=== PATIENT | female | born 1970 | race American Indian/Alaskan Native ===

== ENCOUNTER 2017-11-05 16:47 | Emergency (ER) | payer SELFPAY ==
[2017-11-05 16:54] VITALS: BP 122/84
[2017-11-05 17:24] LABS: Basophils % (Auto) 0.4 % (0.0-1.8); Eosinophils % (Auto) 0.5 % (0.0-4.3); Hematocrit 43.7 % (30.3-42.9); Hemoglobin 14.9 gm/dl (10.1-14.3); Lymphocytes # (Auto) 2.4 K/mm3 (1.2-5.4); Lymphocytes % (Auto) 23.3 % (13.4-35.0); Mean Corpuscular HGB Conc 34 % (30-34); Mean Corpuscular Hemoglobin 35 pg (28-32); Mean Corpuscular Volume 102 fl (79-97); Monocytes # (Auto) 0.7 K/mm3 (0.0-0.8); Monocytes % (Auto) 6.7 % (0.0-7.3); Platelet Count 359 K/mm3 (140-440); Red Blood Count 4.31 M/mm3 (3.65-5.03); Red Cell Distribution Width 14.9 % (13.2-15.2)
[2017-11-05 17:36] LABS: Alanine Aminotransferase 31 units/L (7-56); Albumin 4.3 g/dL (3.9-5); BUN/Creatinine Ratio 6; Blood Urea Nitrogen 4 mg/dL (7-17); Calcium 9.8 mg/dL (8.4-10.2); Hemolysis Index 8; Lipase 11 units/L (13-60)
[2017-11-05 18:39] LABS: Bilirubin,Urine SM (Negative); Blood,Urine SM (Negative); Color,Urine Amber (Yellow); Mucus,Urine 3+ /HPF
[2017-11-05 22:09] LABS: Ictotest,Urine Positive (Negative)
== END 2017-11-06 01:35 | disposition left against medical advice (07) ==
LOC: ED 16:47
DX: R10.9 Unspecified abdominal pain (principal); Z53.21 Procedure and treatment not carried out due to patient leaving prior to being seen by health care provider
CPT/HCPCS: 36415; 80053; 81001; 83690; 85025

== ENCOUNTER 2017-11-06 04:27 | Inpatient (IN) | payer SELFPAY ==
--- NOTE | 2017-11-06 10:34 | Emergency Department Report ---
ED Abdominal Pain HPI - General Chief Complaint: Abdominal Pain Stated Complaint: ABD PAIN; N/V Time Seen by Provider: 11/06/17 10:20 Source: patient Mode of arrival: Ambulatory Limitations: No Limitations - History of Present Illness Initial Comments: She is 46-year-old presents to the emergency room with complaints of generalized abdominal abdominal pain. Patient states she was seen in the emergency room on the of this month and an pain is worsening. Patient states the pain is 10 out of 10. Patient states that she had her labs done and urine done and was discharged home. Patient states she does not know her diagnosis previous ER visit. Patient denies fever and chills. Patient denies chest pain shortness of breath. Patient denies nausea and vomiting. MD Complaint: abdominal pain -: Sudden, days(s) (for 1 day) Location: diffuse Radiation: none Migration to: no migration Severity: severe Severity scale (0 -10): 10 Quality: stabbing Consistency: constant, other (worsening) Improves With: rest Worsens With: movement Associated Symptoms: nausea, vomiting - Related Data LMP (females 10-50): unknown Allergies Allergy/AdvReac Type Severity Reaction Status Date / Time No Known Allergies Allergy Unverified 11/05/17 16:54 ED Review of Systems ROS: Stated complaint: ABD PAIN; N/V Other details as noted in HPI Comment: All other systems reviewed and negative Constitutional: denies: chills, fever Eyes: denies: eye pain, eye discharge, vision change ENT: denies: ear pain, throat pain Respiratory: denies: cough, shortness of breath, wheezing Cardiovascular: denies: chest pain, palpitations Endocrine: no symptoms reported Gastrointestinal: abdominal pain, nausea, vomiting. denies: diarrhea Genitourinary: denies: urgency, dysuria, discharge Musculoskeletal: denies: back pain, joint swelling, arthralgia Skin: denies: rash, lesions Neurological: denies: headache, weakness, paresthesias Psychiatric: denies: anxiety, depression Hematological/Lymphatic: denies: easy bleeding, easy bruising ED Past Medical Hx - Past Medical History Previous Medical History?: Yes Hx Hypertension: Yes Hx CVA: Yes Hx Diabetes: Yes Hx Psychiatric Treatment: Yes (Bipolar, PTSD, Depression) Hx HIV: Yes Additional medical history: gastropharesis, Neuropathy, PUD - Surgical History Past Surgical History?: Yes Hx Cholecystectomy: Yes - Family History Family history: hypertension - Social History Smoking Status: Current Every Day Smoker Substance Use Type: Marijuana ED Physical Exam - General Limitations: No Limitations General appearance: alert, in no apparent distress - Head Head exam: Present: atraumatic, normocephalic - Eye Eye exam: Present: normal appearance - ENT ENT exam: Present: mucous membranes moist - Neck Neck exam: Present: normal inspection - Respiratory Respiratory exam: Present: normal lung sounds bilaterally. Absent: respiratory distress - Cardiovascular Cardiovascular Exam: Present: regular rate, normal rhythm. Absent: systolic murmur, diastolic murmur, rubs, gallop - GI/Abdominal GI/Abdominal exam: Present: soft, tenderness (generalized tenderness to palpation), normal bowel sounds - Extremities Exam Extremities exam: Present: normal inspection - Back Exam Back exam: Present: normal inspection - Neurological Exam Neurological exam: Present: alert, oriented X3 - Psychiatric Psychiatric exam: Present: normal affect, normal mood - Skin Skin exam: Present: warm, dry, intact, normal color. Absent: rash ED Course Vital Signs 11/06/17 11/06/17 11/06/17 05:53 09:27 09:30 Temperature 98.1 F Pulse Rate 85 93 H 80 Respiratory 18 17 15 Rate Blood Pressure 140/88 129/88 O2 Sat by Pulse 100 Oximetry 11/06/17 11/06/17 11/06/17 10:00 10:30 11:00 Temperature Pulse Rate 78 96 H 80 Respiratory 14 12 14 Rate Blood Pressure 137/87 137/104 145/88 O2 Sat by Pulse 94 Oximetry 11/06/17 11/06/17 11/06/17 11:30 12:00 12:30 Temperature Pulse Rate 90 82 84 Respiratory 16 14 16 Rate Blood Pressure 153/101 131/78 134/86 O2 Sat by Pulse 92 Oximetry 11/06/17 11/06/17 11/06/17 13:00 13:30 14:00 Temperature Pulse Rate 81 104 H 91 H Respiratory 14 21 20 Rate Blood Pressure 133/86 139/92 143/92 O2 Sat by Pulse 95 Oximetry 11/06/17 11/06/17 14:30 14:51 Temperature Pulse Rate Respiratory 18 Rate Blood Pressure 127/76 O2 Sat by Pulse Oximetry - Reevaluation(s) Reevaluation #1: All labs reviewed from prior visit. Will repeat order labs and do a CT scan 11/06/17 10:30 Reevaluation #2: All results discussed with patient. Due to the fact the patient has been to the hospital twice in last 24 hours and the pain is intractable, we will admit patient to the hospitalist further evaluation and treatment. Hospitalist agreed to admit. 11/06/17 1730 ED Medical Decision Making - Lab Data Result diagrams: 11/06/17 10:39 Critical care attestation.: If time is entered above; I have spent that time in minutes in the direct care of this critically ill patient, excluding procedure time. ED Disposition Clinical Impression: Abdominal pain, Nausea & vomiting, Intractable abdominal pain Disposition: OP ADMIT IP TO THIS HOSP Is pt being admited?: Yes Does the pt Need Aspirin: No Condition: Serious Time of Disposition: 18:12
[2017-11-06 10:58] LABS: Basophils # (Auto) 0.1 K/mm3 (0.0-0.1); Basophils % (Auto) 0.5 % (0.0-1.8); Eosinophils # (Auto) 0.2 K/mm3 (0.0-0.4); Eosinophils % (Auto) 1.6 % (0.0-4.3); Hematocrit 42.8 % (30.3-42.9); Hemoglobin 14.4 gm/dl (10.1-14.3); Lymphocytes # (Auto) 3.6 K/mm3 (1.2-5.4); Lymphocytes % (Auto) 30.2 % (13.4-35.0); Mean Corpuscular HGB Conc 34 % (30-34); Mean Corpuscular Hemoglobin 34 pg (28-32); Mean Corpuscular Volume 101 fl (79-97); Monocytes % (Auto) 8.2 % (0.0-7.3); Platelet Count 373 K/mm3 (140-440); Red Blood Count 4.24 M/mm3 (3.65-5.03); Red Cell Distribution Width 15.1 % (13.2-15.2)
[2017-11-06] MEDS ORDERED: DILAUDID ONE ×2 (13:59→18:35)
[2017-11-06] MEDS ORDERED: ZOFRAN ONE (14:00)
[2017-11-06] MEDS ORDERED: DILAUDID IV ONE ×2 (14:47→18:20)
[2017-11-06] MEDS ORDERED: ZOFRAN IV ONE (14:48)
--- NOTE | 2017-11-06 15:43 | Cat Scan Report ---
CT ABDOMEN PELVIS WITHOUT CONTRAST: HISTORY: abdominal pain. COMPARISON: none. TECHNIQUE: Helical CT in 1.25mm intervals without IV contrast. Sagittal and coronal reconstructions. FINDINGS: Lung bases: Normal. Liver: Normal. Biliary system: The gallbladder has been surgically removed. No biliary dilatation. Pancreas: Normal. Spleen: Normal. Kidneys/ureters/bladder: Normal. Adrenal glands: Normal. Aorta: Normal. Intestines: Normal. Appendix: Normal. Pelvic viscera: Mild uterine fibroid disease is suspected. No adnexal cyst or mass. Ascites: None. Adenopathy: None. Musculoskeletal: Normal. IMPRESSION: No acute inflammatory process. Mild uterine fibroid disease.
[2017-11-06 16:12] LABS: Bacteria,Urine 1+ /HPF (Negative); Bilirubin,Urine NEG (Negative); Blood,Urine SM (Negative); Color,Urine Yellow (Yellow); Hyaline Casts,Urine 1 /LPF; Mucus,Urine 3+ /HPF
--- NOTE | 2017-11-06 21:49 | History and Physical Report ---
History of Present Illness Date of examination: 11/06/17 Date of admission: Fran 11/06/2017 Chief complaint: Chief complaint: Severe abdominal pain for 3 days History of present illness: History of Present Illness: She is 46-year-old presents to the emergency room with complaints of generalized abdominal pain. Patient states she was seen in the emergency room on the 05 of November and pain is worsening. Patient states the pain is 10 out of 10. Patient states that she had her labs done and urine done and was discharged home. Patient states she does not know her diagnosis previous ER visit. Patient denies fever and chills. Patient denies chest pain shortness of breath. Patient denies nausea and vomiting. No excessive bending or relieving factors Past Medical History Previous Medical History?: Yes Hx Hypertension: Yes Hx CVA: Yes Hx Diabetes: Yes Hx Psychiatric Treatment: Yes (Bipolar, PTSD, Depression) Hx HIV: Yes Additional medical history: gastropharesis, Neuropathy, PUD -Surgical History Past Surgical History?: Yes Hx Cholecystectomy: Yes -Family History Family history: hypertension Social History Smoking Status: Current Every Day Smoker Substance Use Type: Marijuana Review of Systems ROS: Stated complaint: ABD PAIN; N/V Other details as noted in HPI Comment: All other systems reviewed and negative Constitutional: denies: chills, fever Eyes: denies: eye pain, eye discharge, vision change ENT: denies: ear pain, throat pain Respiratory: denies: cough, shortness of breath, wheezing Cardiovascular: denies: chest pain, palpitations Endocrine: no symptoms reported Gastrointestinal: abdominal pain, nausea, vomiting. denies: diarrhea Genitourinary: denies: urgency, dysuria, discharge Musculoskeletal: denies: back pain, joint swelling, arthralgia Skin: denies: rash, lesions Neurological: denies: headache, weakness, paresthesias Psychiatric: denies: anxiety, depression Hematological/Lymphatic: denies: easy bleeding, easy bruising Medications and Allergies Allergies Allergy/AdvReac Type Severity Reaction Status Date / Time No Known Allergies Allergy Verified 11/06/17 22:12 Home Medications Medication Instructions Recorded Confirmed Last Taken Type Aspirin [Adult Low Dose Aspirin EC] 81 mg PO DAILY 11/06/17 11/06/17 11/05/17 History Docusate Sodium [Stool Softener] 100 mg PO DAILY 11/06/17 11/06/17 11/05/17 History Efavirenz/Emtricitab/Tenofovir 1 each PO DAILY 11/06/17 11/06/17 11/05/17 History [Atripla Tablet] Esomeprazole Magnesium [NexIUM] 40 mg PO QAM 11/06/17 11/06/17 11/05/17 History Gabapentin [Neurontin] 800 mg PO BID 11/06/17 11/06/17 11/05/17 History Hydrochlorothiazide [HCTZ] 25 mg PO DAILY 11/06/17 11/06/17 11/05/17 History Metformin HCl [Glucophage Xr] 500 mg PO BID 11/06/17 11/06/17 11/05/17 History Metoclopramide [Reglan] 10 mg PO QID 11/06/17 11/06/17 11/05/17 History Potassium 99 mg PO DAILY 11/06/17 11/06/17 11/05/17 History Promethazine [Phenergan TAB] 25 mg PO DAILY 11/06/17 11/06/17 11/05/17 History Quetiapine Fumarate [Seroquel] 600 mg PO DAILY 11/06/17 11/06/17 11/05/17 History Valsartan [Diovan] 160 mg PO DAILY 11/06/17 11/06/17 11/05/17 History Exam - Constitutional Vitals: Temp Pulse Resp BP Pulse Ox 98.3 F 78 16 95/57 98 11/06/17 19:50 11/06/17 19:50 11/06/17 19:50 11/06/17 21:30 11/06/17 19:50 General appearance: Present: no acute distress, well-nourished - EENT Eyes: Present: PERRL ENT: hearing intact, clear oral mucosa - Neck Neck: Present: supple, normal ROM - Respiratory Respiratory effort: normal Respiratory: bilateral: CTA - Cardiovascular Heart Sounds: Present: S1 & S2. Absent: rub, click - Extremities Extremities: no ischemia, pulses intact, pulses symmetrical, No edema Peripheral Pulses: within normal limits - Abdominal General gastrointestinal: Present: soft, tender, non-distended, normal bowel sounds Localized gastrointestinal: tender: diffuse Female genitourinary: Present: normal - Rectal Rectal Exam: deferred - Integumentary Integumentary: Present: clear, warm, dry - Musculoskeletal Musculoskeletal: gait normal, strength equal bilaterally - Psychiatric Psychiatric: appropriate mood/affect, intact judgment & insight - Neurologic Neurologic: CNII-XII intact, moves all extremities - Allied Health Allied health notes reviewed: nursing, case management Results - Labs CBC & Chem 7: 11/07/17 05:01 11/07/17 05:01 Labs: Laboratory Last Values WBC 12.1 K/mm3 (4.5-11.0) H 11/06/17 10:39 RBC 4.24 M/mm3 (3.65-5.03) 11/06/17 10:39 Hgb 14.4 gm/dl (10.1-14.3) H 11/06/17 10:39 Hct 42.8 % (30.3-42.9) 11/06/17 10:39 MCV 101 fl (79-97) H 11/06/17 10:39 MCH 34 pg (28-32) H 11/06/17 10:39 MCHC 34 % (30-34) 11/06/17 10:39 RDW 15.1 % (13.2-15.2) 11/06/17 10:39 Plt Count 373 K/mm3 (140-440) 11/06/17 10:39 Lymph % (Auto) 30.2 % (13.4-35.0) 11/06/17 10:39 [place] % (Auto) 8.2 % (0.0-7.3) H 11/06/17 10:39 Eos % (Auto) 1.6 % (0.0-4.3) 11/06/17 10:39 Baso % (Auto) 0.5 % (0.0-1.8) 11/06/17 10:39 Lymph # 3.6 K/mm3 (1.2-5.4) 11/06/17 10:39 [place] # 1.0 K/mm3 (0.0-0.8) H 11/06/17 10:39 Eos # 0.2 K/mm3 (0.0-0.4) 11/06/17 10:39 Baso # 0.1 K/mm3 (0.0-0.1) 11/06/17 10:39 Seg Neutrophils % 59.5 % (40.0-70.0) 11/06/17 10:39 Seg Neutrophils # 7.2 K/mm3 (1.8-7.7) 11/06/17 10:39 Amylase 33 units/L (27-131) 11/06/17 10:39 Lipase 15 units/L (13-60) 11/06/17 10:39 HCG, Qual Negative (Negative) 11/06/17 10:39 Urine Color Yellow (Yellow) 11/06/17 15:49 Urine Turbidity Clear (Clear) 11/06/17 15:49 Urine pH 6.0 (5.0-7.0) 11/06/17 15:49 Ur Specific [place] 1.021 (1.003-1.030) 11/06/17 15:49 Urine Protein 100 mg/dl mg/dL (Negative) 11/06/17 15:49 Urine Glucose (UA) Neg mg/dL (Negative) 11/06/17 15:49 Urine Ketones 80 mg/dL (Negative) 11/06/17 15:49 Urine Blood Sm (Negative) 11/06/17 15:49 Urine Nitrite Neg (Negative) 11/06/17 15:49 Urine Bilirubin Neg (Negative) 11/06/17 15:49 Urine Urobilinogen 2.0 mg/dL (<2.0) 11/06/17 15:49 Ur Leukocyte Esterase Neg (Negative) 11/06/17 15:49 Urine WBC (Auto) 2.0 /HPF (0.0-6.0) 11/06/17 15:49 Urine RBC (Auto) 8.0 /HPF (0.0-6.0) 11/06/17 15:49 U Epithel Cells (Auto) 30.0 /HPF (0-13.0) H 11/06/17 15:49 Urine Bacteria (Auto) 1+ /HPF (Negative) 11/06/17 15:49 Hyaline Casts 1 /LPF 11/06/17 15:49 Urine Mucus 3+ /HPF 11/06/17 15:49 Short CBC 11/06/17 11/07/17 Range/Units 10:39 05:01 WBC 12.1 H 9.6 (4.5-11.0) K/mm3 Hgb 14.4 H 12.9 (10.1-14.3) gm/dl Hct 42.8 37.8 (30.3-42.9) % Plt Count 373 301 (140-440) K/mm3 [facility] 11/07/17 05:01 Sodium 137 Potassium 2.8 L* Chloride 99.2 Carbon Dioxide 22 BUN 7 Creatinine 0.7 Glucose 137 H Calcium 8.5 Liver Function 11/07/17 Range/Units 05:01 Total Bilirubin 0.30 (0.1-1.2) mg/dL AST 33 (5-40) units/L ALT 30 (7-56) units/L Alkaline Phosphatase 114 (35-129) units/L Albumin 3.6 L (3.9-5) g/dL Urine 11/06/17 Range/Units 15:49 Urine Color Yellow (Yellow) Urine pH 6.0 (5.0-7.0) Ur Specific [place] 1.021 (1.003-1.030) Urine Protein 100 mg/dl (Negative) mg/dL Urine Glucose (UA) Neg (Negative) mg/dL Short CBC 11/06/17 11/07/17 Range/Units 10:39 05:01 WBC 12.1 H 9.6 (4.5-11.0) K/mm3 Hgb 14.4 H 12.9 (10.1-14.3) gm/dl Hct 42.8 37.8 (30.3-42.9) % Plt Count 373 301 (140-440) K/mm3 [facility] 11/07/17 05:01 Sodium 137 Potassium 2.8 L* Chloride 99.2 Carbon Dioxide 22 BUN 7 Creatinine 0.7 Glucose 137 H Calcium 8.5 Liver Function 11/07/17 Range/Units 05:01 Total Bilirubin 0.30 (0.1-1.2) mg/dL AST 33 (5-40) units/L ALT 30 (7-56) units/L Alkaline Phosphatase 114 (35-129) units/L Albumin 3.6 L (3.9-5) g/dL Urine 11/06/17 Range/Units 15:49 Urine Color Yellow (Yellow) Urine pH 6.0 (5.0-7.0) Ur Specific [place] 1.021 (1.003-1.030) Urine Protein 100 mg/dl (Negative) mg/dL Urine Glucose (UA) Neg (Negative) mg/dL - Imaging and Cardiology EKG: report reviewed CT scan - abdomen: report reviewed Imaging and Cardiology: CT abdomen No acute inflammatory process Mild uterine fibroid disease Assessment and Plan Advance Directives: Yes (full code) VTE prophylaxis?: Chemical Plan of care discussed with patient/family: Yes - Patient Problems (1) Intractable abdominal pain Current Visit: Yes Status: Acute Plan to address problem: Normal CAT scan Patient admitted for observation Surgical consult requested Possible gastroparesis causing generalized pain will defer to surgery If cleared we will discharge the patient (2) Hypokalemia Current Visit: Yes Status: Acute Plan to address problem: Supplemented (3) Hypertension Current Visit: Yes Status: Chronic Qualifiers: Hypertension type: essential hypertension Qualified Code(s): I10 - Essential (primary) hypertension Plan to address problem: Continue antihypertensives (4) T2DM (type 2 diabetes mellitus) Current Visit: Yes Status: Chronic Qualifiers: Diabetes mellitus rn long term care insulin use: without rn long term care use Plan to address problem: We'll stop the metformin which can cause abdominal pain nausea and vomiting. Coverage for now Check hemoglobin A1c (5) HIV (human immunodeficiency virus infection) Current Visit: Yes Status: Chronic Plan to address problem: Continue antiretrovirals (6) DVT prophylaxis Current Visit: Yes Status: Acute Plan to address problem: Heparin subcutaneous
[2017-11-06] MEDS ORDERED: TYLENOL PO PRN (22:00)
[2017-11-06] MEDS ORDERED: SODIUM CHLORIDE FLUSH SYRINGE 10 ML IV PRN (22:00)
[2017-11-06] MEDS ORDERED: ZOFRAN IV PRN (22:00)
[2017-11-06] MEDS: SODIUM CHLORIDE FLUSH SYRINGE 10 ML IV SCH (22:57)
[2017-11-07] MEDS: D5NS 1,000 ML IV SCH ×2 (00:41→23:06)
[2017-11-07] MEDS: MORPHINE IV PRN ×2 (00:41→05:55)
[2017-11-07 05:26] LABS: Basophils # (Auto) 0.1 K/mm3 (0.0-0.1); Basophils % (Auto) 0.5 % (0.0-1.8); Eosinophils # (Auto) 0.3 K/mm3 (0.0-0.4); Eosinophils % (Auto) 2.9 % (0.0-4.3); Hematocrit 37.8 % (30.3-42.9); Hemoglobin 12.9 gm/dl (10.1-14.3); Lymphocytes # (Auto) 3.8 K/mm3 (1.2-5.4); Lymphocytes % (Auto) 39.6 % (13.4-35.0); Mean Corpuscular HGB Conc 34 % (30-34); Mean Corpuscular Hemoglobin 34 pg (28-32); Mean Corpuscular Volume 100 fl (79-97); Monocytes # (Auto) 0.8 K/mm3 (0.0-0.8); Monocytes % (Auto) 8.1 % (0.0-7.3); Platelet Count 301 K/mm3 (140-440); Red Blood Count 3.78 M/mm3 (3.65-5.03); Red Cell Distribution Width 14.8 % (13.2-15.2)
[2017-11-07] MEDS: HEPARIN SUB-Q SCH ×3 (05:43→21:42)
[2017-11-07 05:47] LABS: Alanine Aminotransferase 30 units/L (7-56); Albumin 3.6 g/dL (3.9-5); BUN/Creatinine Ratio 10; Blood Urea Nitrogen 7 mg/dL (7-17); Calcium 8.5 mg/dL (8.4-10.2); Hemolysis Index 9
[2017-11-07] MEDS ORDERED: KCL 10MEQ/100ML 10 MEQ/100 ML BAG IV SCH ×2 (08:00→10:00)
[2017-11-07] MEDS ORDERED: KCL 40 MEQ in NACL 0.9% 500 ML 400 ML IV ONE (09:30)
[2017-11-07] MEDS ORDERED: K-DUR PO ONE (09:48)
[2017-11-07] MEDS ORDERED: DIOVAN PO SCH (10:00)
[2017-11-07] MEDS ORDERED: ATRIPLA (NF) PO SCH (10:00)
[2017-11-07] MEDS ORDERED: QUETIAPINE FUMARATE 600 MG PO SCH (10:00)
--- NOTE | 2017-11-07 10:46 | Consultation ---
History of Present Illness Consult date: 11/07/17 Chief complaint: Abdominal pain - History of present illness History of present illness: 46-year-old female with a past medical history of diabetes, gastroparesis, HIV, neuropathy presents to the emergency room with complaints of left upper quadrant abdominal pain for 24 hours. It is sharp in nature and radiates from the left upper quadrant to the rest of her abdomen. She also had multiple bouts of nonbloody, nonbilious emesis over the last 24 hours. She states that this pain is chronic but becomes exacerbated by her gastroparesis several times a year. She states that when she feels her gastroparesis being exacerbated, she takes Reglan for 1-2 days and this seems to help. This a.m., she did tolerate clear liquids. She also complains of being constipated. Denies fevers , chills, chest pain, shortness of breath. She states she is compliant with her medications. She follows with a potato sorter at [place]. Her last EGD was last year which showed peptic ulcer disease for which she takes Nexium. Past History Past Medical History: diabetes, other (neuropathy, gastroparesis, HIV) Past Surgical History: Other (EGD, laparoscopic cholecystectomy) Social history: other (crack, marijuana) Family history: no significant family history Medications and Allergies Allergies Allergy/AdvReac Type Severity Reaction Status Date / Time No Known Allergies Allergy Verified 11/06/17 22:12 Home Medications Medication Instructions Recorded Confirmed Last Taken Type Aspirin [Adult Low Dose Aspirin EC] 81 mg PO DAILY 11/06/17 11/06/17 11/05/17 History Docusate Sodium [Stool Softener] 100 mg PO DAILY 11/06/17 11/06/17 11/05/17 History Efavirenz/Emtricitab/Tenofovir 1 each PO DAILY 11/06/17 11/06/17 11/05/17 History [Atripla Tablet] Esomeprazole Magnesium [NexIUM] 40 mg PO QAM 11/06/17 11/06/17 11/05/17 History Gabapentin [Neurontin] 800 mg PO BID 11/06/17 11/06/17 11/05/17 History Hydrochlorothiazide [HCTZ] 25 mg PO DAILY 11/06/17 11/06/17 11/05/17 History Metformin HCl [Glucophage Xr] 500 mg PO BID 11/06/17 11/06/17 11/05/17 History Metoclopramide [Reglan] 10 mg PO QID 11/06/17 11/06/17 11/05/17 History Potassium 99 mg PO DAILY 11/06/17 11/06/17 11/05/17 History Promethazine [Phenergan TAB] 25 mg PO DAILY 11/06/17 11/06/17 11/05/17 History Quetiapine Fumarate [Seroquel] 600 mg PO DAILY 11/06/17 11/06/17 11/05/17 History Valsartan [Diovan] 160 mg PO DAILY 11/06/17 11/06/17 11/05/17 History Active Meds: Active Medications Acetaminophen (Tylenol) 650 mg PO Q4H PRN PRN Reason: Pain MILD(1-3)/Fever >100.5/HANKS Heparin Sodium (Porcine) (Heparin) 5,000 unit SUB-Q Q8HR [facility] Last Admin: 11/07/17 05:43 Dose: 5,000 unit Dextrose/Sodium Chloride (D5ns) 1,000 mls @ 125 mls/hr IV DIRECT JESUSITA Last Admin: 11/07/17 00:41 Dose: 125 mls/hr Potassium Chloride 40 meq/ (Sodium Chloride) 420 mls @ 100 mls/hr IV ONCE ONE Stop: 11/07/17 13:41 Potassium Chloride (Kcl 10meq/100ml) 10 meq in 100 mls @ 100 mls/hr IV Q1H JESUSITA Stop: 11/07/17 12:59 Insulin Human Regular (Humulin R) 0 units SUB-Q Q6HR JESUSITA; Protocol Metoclopramide HCl (Reglan) 5 mg IV ACHS JESUSITA Morphine Sulfate (Morphine) 4 mg IV Q4H PRN PRN Reason: Pain , Severe (7-10) Last Admin: 11/07/17 05:55 Dose: 4 mg Ondansetron HCl (Zofran) 4 mg IV Q8H PRN PRN Reason: Nausea And Vomiting Oxycodone/Acetaminophen (Percocet 5/325) 1 tab PO Q6H PRN PRN Reason: Pain, Moderate (4-6) Quetiapine Fumarate (Seroquel) 600 mg PO DAILY [facility] Last Admin: 11/07/17 09:46 Dose: 600 mg Sodium Chloride (Sodium Chloride Flush Syringe 10 Ml) 10 ml IV BID JESUSITA Last Admin: 11/06/17 22:57 Dose: 10 ml Sodium Chloride (Sodium Chloride Flush Syringe 10 Ml) 10 ml IV PRN PRN PRN Reason: LINE FLUSH Review of Systems All systems: negative (10 point review systems was performed and negative except for that listed in HPI) Exam Vital Signs Temp Pulse Resp BP Pulse Ox 98.1 F 85 18 140/88 100 11/06/17 05:53 11/06/17 05:53 11/06/17 05:53 11/06/17 05:53 11/06/17 05:53 Narrative exam: General: Awake, alert, oriented 3. No apparent distress ENT: No scleral icterus or conjunctival pallor CV: S1, S2 present. No murmurs, rubs, gallops Respiratory: The auscultation bilaterally, no wheezes, rales, rhonchi Abdomen: Soft, nondistended, left upper quadrant tenderness to palpation. No rebound, rigidity, guarding Extremities: No clubbing, cyanosis, edema Results - Labs 11/07/17 05:01 11/07/17 05:01 Abnormal lab results 11/06/17 11/06/17 11/06/17 Range/Units 10:39 15:49 22:53 WBC 12.1 H (4.5-11.0) K/mm3 Hgb 14.4 H (10.1-14.3) gm/dl MCV 101 H (79-97) fl MCH 34 H (28-32) pg Lymph % (Auto) (13.4-35.0) % [place] % (Auto) 8.2 H (0.0-7.3) % [place] # 1.0 H (0.0-0.8) K/mm3 Potassium (3.6-5.0) mmol/L Glucose (65-100) mg/dL Hemoglobin A1c 6.5 H (4-6) % Albumin (3.9-5) g/dL U Epithel Cells (Auto) 30.0 H (0-13.0) /HPF 11/07/17 11/07/17 Range/Units 05:01 05:01 WBC (4.5-11.0) K/mm3 Hgb (10.1-14.3) gm/dl MCV 100 H (79-97) fl MCH 34 H (28-32) pg Lymph % (Auto) 39.6 H (13.4-35.0) % [place] % (Auto) 8.1 H (0.0-7.3) % [place] # (0.0-0.8) K/mm3 Potassium 2.8 L* (3.6-5.0) mmol/L Glucose 137 H (65-100) mg/dL Hemoglobin A1c (4-6) % Albumin 3.6 L (3.9-5) g/dL U Epithel Cells (Auto) (0-13.0) /HPF Diabetes panel 11/06/17 11/07/17 Range/Units 22:53 05:01 Sodium 137 (137-145) mmol/L Potassium 2.8 L* (3.6-5.0) mmol/L Chloride 99.2 (98-107) mmol/L Carbon Dioxide 22 (22-30) mmol/L BUN 7 (7-17) mg/dL Creatinine 0.7 (0.7-1.2) mg/dL Glucose 137 H (65-100) mg/dL Hemoglobin A1c 6.5 H (4-6) % Calcium 8.5 (8.4-10.2) mg/dL AST 33 (5-40) units/L ALT 30 (7-56) units/L Alkaline Phosphatase 114 (35-129) units/L Total Protein 6.8 (6.3-8.2) g/dL Albumin 3.6 L (3.9-5) g/dL Calcium panel 11/07/17 Range/Units 05:01 Calcium 8.5 (8.4-10.2) mg/dL Albumin 3.6 L (3.9-5) g/dL Pituitary panel 11/07/17 Range/Units 05:01 Sodium 137 (137-145) mmol/L Potassium 2.8 L* (3.6-5.0) mmol/L Chloride 99.2 (98-107) mmol/L Carbon Dioxide 22 (22-30) mmol/L BUN 7 (7-17) mg/dL Creatinine 0.7 (0.7-1.2) mg/dL Glucose 137 H (65-100) mg/dL Calcium 8.5 (8.4-10.2) mg/dL Adrenal panel 03/16/18 Range/Units 05:01 Sodium 137 (137-145) mmol/L Potassium 2.8 L* (3.6-5.0) mmol/L Chloride 99.2 (98-107) mmol/L Carbon Dioxide 22 (22-30) mmol/L BUN 7 (7-17) mg/dL Creatinine 0.7 (0.7-1.2) mg/dL Glucose 137 H (65-100) mg/dL Calcium 8.5 (8.4-10.2) mg/dL Total Bilirubin 0.30 (0.1-1.2) mg/dL AST 33 (5-40) units/L ALT 30 (7-56) units/L Alkaline Phosphatase 114 (35-129) units/L Total Protein 6.8 (6.3-8.2) g/dL Albumin 3.6 L (3.9-5) g/dL - Imaging CT scan - abdomen: report reviewed, image reviewed CT scan - pelvis: report reviewed, image reviewed Assessment and Plan 46-year-old female with 1. abd pain, n/v likely secondary to gastroparesis 2. Diabetic neuropathy 3. Diabetes Plan: 1. CT A/P reviewed - no acute findings 2. start reglan 3. PPI 4. adv diet as tolerated 5. continue home meds 6. outpatient follow up with Hospital Pharmacist at [place] 7. No acute surgical intervention D/W Dr. Mtz Thank you for this consultation, please call with any questions or concerns.
[2017-11-07] MEDS: HumuLIN R SUB-Q SCH ×3 (11:05→23:59)
[2017-11-07] MEDS: PERCOCET 5/325 PO PRN ×3 (11:14→23:02)
[2017-11-07] MEDS ORDERED: KCL 30 MEQ in NACL 0.9% 500 ML 300 ML IV ONE (12:00)
[2017-11-07] MEDS: SODIUM CHLORIDE FLUSH SYRINGE 10 ML IV SCH ×2 (14:10→22:15)
[2017-11-07] MEDS: ATRIPLA (NF) PO SCH (14:10)
[2017-11-07] MEDS: REGLAN IV SCH ×3 (14:10→21:42)
[2017-11-07] MEDS: COLACE PO SCH (17:11)
--- NOTE | 2017-11-07 17:52 | Progress Note ---
Assessment and Plan Assessment and plan: --Severe Hypokalemia; replace per protocol and monitor levels --Intractable nausea vomiting/acute gastritis Probably secondary to gastroparesis IV fluids, advance diet as tolerated, antiemetics Pain medications --Type 2 diabetes mellitus; Accu-Chek sliding scale coverage ADA diet and insulin --Diabetic neuropathy; continue gabapentin --Hypertension; moderate control, continue current antihypertensives and when necessary medication --HIV/AIDS; continue antiretrovirals, supportive care --DVT prophylaxis; heparin Closely monitor the patient and adjust management as needed Discussed with Dr. Arteaga, no surgical intervention needed History Interval history: Patient seen and examined in her room this morning medical records reviewed Abdominal pain significantly improved, still has some nausea Tolerating clear liquid diet Alert awake oriented 3 not in acute distress Vital signs reviewed stable Hospitalist Physical - Constitutional Vitals: Temp Pulse Resp BP Pulse Ox 98.7 F 98 H 20 102/69 96 11/07/17 13:00 11/07/17 13:00 11/07/17 13:00 11/07/17 13:00 11/07/17 13:00 General appearance: Present: no acute distress, well-nourished - EENT Eyes: Present: PERRL, EOM intact - Neck Neck: Present: supple, normal ROM - Respiratory Respiratory effort: normal Respiratory: negative: rales, rhonchi, wheezing - Cardiovascular Rhythm: regular Heart Sounds: Present: S1 & S2 - Extremities Extremities: no ischemia, No edema - Abdominal General gastrointestinal: soft, non-tender, non-distended, normal bowel sounds - Integumentary Integumentary: Present: clear, warm - Psychiatric Psychiatric: appropriate mood/affect, cooperative - Neurologic Neurologic: CNII-XII intact, moves all extremities Results - Labs CBC & Chem 7: 11/07/17 05:01 11/07/17 05:01 Labs: Laboratory Last Values WBC 9.6 K/mm3 (4.5-11.0) 11/07/17 05:01 RBC 3.78 M/mm3 (3.65-5.03) 11/07/17 05:01 Hgb 12.9 gm/dl (10.1-14.3) 11/07/17 05:01 Hct 37.8 % (30.3-42.9) 11/07/17 05:01 MCV 100 fl (79-97) H 11/07/17 05:01 MCH 34 pg (28-32) H 11/07/17 05:01 MCHC 34 % (30-34) 11/07/17 05:01 RDW 14.8 % (13.2-15.2) 11/07/17 05:01 Plt Count 301 K/mm3 (140-440) 11/07/17 05:01 Lymph % (Auto) 39.6 % (13.4-35.0) H 11/07/17 05:01 [place] % (Auto) 8.1 % (0.0-7.3) H 11/07/17 05:01 Eos % (Auto) 2.9 % (0.0-4.3) 11/07/17 05:01 Baso % (Auto) 0.5 % (0.0-1.8) 11/07/17 05:01 Lymph # 3.8 K/mm3 (1.2-5.4) 11/07/17 05:01 [place] # 0.8 K/mm3 (0.0-0.8) 11/07/17 05:01 Eos # 0.3 K/mm3 (0.0-0.4) 11/07/17 05:01 Baso # 0.1 K/mm3 (0.0-0.1) 11/07/17 05:01 Seg Neutrophils % 48.9 % (40.0-70.0) 11/07/17 05:01 Seg Neutrophils # 4.7 K/mm3 (1.8-7.7) 11/07/17 05:01 Sodium 137 mmol/L (137-145) 11/07/17 05:01 Potassium 2.8 mmol/L (3.6-5.0) L* 11/07/17 05:01 Chloride 99.2 mmol/L (98-107) 11/07/17 05:01 Carbon Dioxide 22 mmol/L (22-30) 11/07/17 05:01 Anion Gap 19 mmol/L 11/07/17 05:01 BUN 7 mg/dL (7-17) 11/07/17 05:01 Creatinine 0.7 mg/dL (0.7-1.2) 11/07/17 05:01 Estimated GFR > 60 ml/min 11/07/17 05:01 BUN/Creatinine Ratio 10 % 11/07/17 05:01 Glucose 137 mg/dL (65-100) H 11/07/17 05:01 POC Glucose 148 (70-105) H 11/07/17 13:02 Hemoglobin A1c 6.5 % (4-6) H 11/06/17 22:53 Calcium 8.5 mg/dL (8.4-10.2) 11/07/17 05:01 Total Bilirubin 0.30 mg/dL (0.1-1.2) 11/07/17 05:01 AST 33 units/L (5-40) 11/07/17 05:01 ALT 30 units/L (7-56) 11/07/17 05:01 Alkaline Phosphatase 114 units/L (35-129) 11/07/17 05:01 Total Protein 6.8 g/dL (6.3-8.2) 11/07/17 05:01 Albumin 3.6 g/dL (3.9-5) L 11/07/17 05:01 Albumin/Globulin Ratio 1.1 % 11/07/17 05:01 Amylase 33 units/L (27-131) 11/06/17 10:39 Lipase 15 units/L (13-60) 11/06/17 10:39 HCG, Qual Negative (Negative) 11/06/17 10:39 Urine Color Yellow (Yellow) 11/06/17 15:49 Urine Turbidity Clear (Clear) 11/06/17 15:49 Urine pH 6.0 (5.0-7.0) 11/06/17 15:49 Ur Specific [place] 1.021 (1.003-1.030) 11/06/17 15:49 Urine Protein 100 mg/dl mg/dL (Negative) 11/06/17 15:49 Urine Glucose (UA) Neg mg/dL (Negative) 11/06/17 15:49 Urine Ketones 80 mg/dL (Negative) 11/06/17 15:49 Urine Blood Sm (Negative) 11/06/17 15:49 Urine Nitrite Neg (Negative) 11/06/17 15:49 Urine Bilirubin Neg (Negative) 11/06/17 15:49 Urine Urobilinogen 2.0 mg/dL (<2.0) 11/06/17 15:49 Ur Leukocyte Esterase Neg (Negative) 03/15/18 15:49 Urine WBC (Auto) 2.0 /HPF (0.0-6.0) 11/06/17 15:49 Urine RBC (Auto) 8.0 /HPF (0.0-6.0) 11/06/17 15:49 U Epithel Cells (Auto) 30.0 /HPF (0-13.0) H 11/06/17 15:49 Urine Bacteria (Auto) 1+ /HPF (Negative) 11/06/17 15:49 Hyaline Casts 1 /LPF 11/06/17 15:49 Urine Mucus 3+ /HPF 11/06/17 15:49
[2017-11-08] MEDS: HumuLIN R SUB-Q SCH ×4 (03:19→18:32)
[2017-11-08] MEDS: COLACE PO SCH ×4 (03:24→23:13)
[2017-11-08 05:36] LABS: BUN/Creatinine Ratio 5; Blood Urea Nitrogen 3 mg/dL (7-17); Calcium 8.3 mg/dL (8.4-10.2); Hemolysis Index 5
[2017-11-08] MEDS: HEPARIN SUB-Q SCH ×3 (06:53→23:05)
[2017-11-08] MEDS: D5NS 1,000 ML IV SCH (07:45)
[2017-11-08] MEDS: REGLAN IV SCH ×4 (08:35→23:02)
[2017-11-08] MEDS: PERCOCET 5/325 PO PRN ×3 (09:27→23:15)
[2017-11-08] MEDS: SODIUM CHLORIDE FLUSH SYRINGE 10 ML IV SCH (10:00)
[2017-11-08] MEDS: ATRIPLA (NF) PO SCH (11:10)
[2017-11-08] MEDS ORDERED: K-DUR PO ONE (17:16)
[2017-11-08] MEDS ORDERED: MYLICON PO ONE (18:20)
--- NOTE | 2017-11-08 18:26 | Progress Note ---
Assessment and Plan Assessment and plan: -- Hypokalemia; replace per protocol and monitor levels --Intractable nausea vomiting/acute gastritis Very minimal improvement, unable advance diet to clear liquids Probably secondary to gastroparesis, check abdominal series Gasx/simethicone when necessary Surgery evaluated the patient, nil surgical --Type 2 diabetes mellitus; Accu-Chek sliding scale coverage ADA diet and insulin --Diabetic neuropathy; continue gabapentin --Hypertension; moderate control, continue current antihypertensives and when necessary medication --HIV/AIDS; continue antiretrovirals, supportive care --DVT prophylaxis; heparin Follow abdominal series , manage as needed Ambulate as tolerated History Interval history: Sincerely and examined medical records reviewed Complaints of abdominal pain bloating, unable to tolerate full liquid diet Mild nausea and vomiting Alert awake oriented 3, not in acute distress Vital signs reviewed Hospitalist Physical - Constitutional Vitals: Temp Pulse Resp BP Pulse Ox 98.3 F 85 16 120/77 95 11/08/17 15:35 11/08/17 15:35 11/08/17 15:35 11/08/17 15:35 11/08/17 15:35 General appearance: Present: no acute distress, well-nourished - EENT Eyes: Present: PERRL, EOM intact - Neck Neck: Present: supple, normal ROM - Respiratory Respiratory effort: normal Respiratory: negative: rales, rhonchi, wheezing - Cardiovascular Rhythm: regular Heart Sounds: Present: S1 & S2 - Extremities Extremities: no ischemia, No edema - Abdominal General gastrointestinal: soft, tender (vague tenderness, no guarding no rigidity), normal bowel sounds - Integumentary Integumentary: Present: clear, warm - Psychiatric Psychiatric: appropriate mood/affect, cooperative - Neurologic Neurologic: CNII-XII intact, moves all extremities Results - Labs CBC & Chem 7: 11/07/17 05:01 11/08/17 04:48 Labs: Laboratory Last Values WBC 9.6 K/mm3 (4.5-11.0) 11/07/17 05:01 RBC 3.78 M/mm3 (3.65-5.03) 11/07/17 05:01 Hgb 12.9 gm/dl (10.1-14.3) 11/07/17 05:01 Hct 37.8 % (30.3-42.9) 11/07/17 05:01 MCV 100 fl (79-97) H 11/07/17 05:01 MCH 34 pg (28-32) H 11/07/17 05:01 MCHC 34 % (30-34) 11/07/17 05:01 RDW 14.8 % (13.2-15.2) 11/07/17 05:01 Plt Count 301 K/mm3 (140-440) 11/07/17 05:01 Lymph % (Auto) 39.6 % (13.4-35.0) H 11/07/17 05:01 [place] % (Auto) 8.1 % (0.0-7.3) H 11/07/17 05:01 Eos % (Auto) 2.9 % (0.0-4.3) 11/07/17 05:01 Baso % (Auto) 0.5 % (0.0-1.8) 11/07/17 05:01 Lymph # 3.8 K/mm3 (1.2-5.4) 11/07/17 05:01 [place] # 0.8 K/mm3 (0.0-0.8) 11/07/17 05:01 Eos # 0.3 K/mm3 (0.0-0.4) 11/07/17 05:01 Baso # 0.1 K/mm3 (0.0-0.1) 11/07/17 05:01 Seg Neutrophils % 48.9 % (40.0-70.0) 11/07/17 05:01 Seg Neutrophils # 4.7 K/mm3 (1.8-7.7) 11/07/17 05:01 Sodium 139 mmol/L (137-145) 11/08/17 04:48 Potassium 3.5 mmol/L (3.6-5.0) L D 11/08/17 04:48 Chloride 106.3 mmol/L (98-107) 11/08/17 04:48 Carbon Dioxide 19 mmol/L (22-30) L 11/08/17 04:48 Anion Gap 17 mmol/L 11/08/17 04:48 BUN 3 mg/dL (7-17) L 11/08/17 04:48 Creatinine 0.6 mg/dL (0.7-1.2) L 11/08/17 04:48 Estimated GFR > 60 ml/min 11/08/17 04:48 BUN/Creatinine Ratio 5 % 11/08/17 04:48 Glucose 134 mg/dL (65-100) H 11/08/17 04:48 POC Glucose 134 (70-105) H 11/08/17 18:04 Hemoglobin A1c 6.5 % (4-6) H 11/06/17 22:53 Calcium 8.3 mg/dL (8.4-10.2) L 11/08/17 04:48 Magnesium 1.70 mg/dL (1.7-2.3) 11/08/17 04:48 Total Bilirubin 0.30 mg/dL (0.1-1.2) 11/07/17 05:01 AST 33 units/L (5-40) 11/07/17 05:01 ALT 30 units/L (7-56) 11/07/17 05:01 Alkaline Phosphatase 114 units/L (35-129) 11/07/17 05:01 Total Protein 6.8 g/dL (6.3-8.2) 11/07/17 05:01 Albumin 3.6 g/dL (3.9-5) L 11/07/17 05:01 Albumin/Globulin Ratio 1.1 % 11/07/17 05:01 Amylase 33 units/L (27-131) 11/06/17 10:39 Lipase 15 units/L (13-60) 11/06/17 10:39 HCG, Qual Negative (Negative) 11/06/17 10:39 Urine Color Yellow (Yellow) 11/06/17 15:49 Urine Turbidity Clear (Clear) 11/06/17 15:49 Urine pH 6.0 (5.0-7.0) 11/06/17 15:49 Ur Specific [place] 1.021 (1.003-1.030) 11/06/17 15:49 Urine Protein 100 mg/dl mg/dL (Negative) 11/06/17 15:49 Urine Glucose (UA) Neg mg/dL (Negative) 11/06/17 15:49 Urine Ketones 80 mg/dL (Negative) 11/06/17 15:49 Urine Blood Sm (Negative) 11/06/17 15:49 Urine Nitrite Neg (Negative) 11/06/17 15:49 Urine Bilirubin Neg (Negative) 11/06/17 15:49 Urine Urobilinogen 2.0 mg/dL (<2.0) 11/06/17 15:49 Ur Leukocyte Esterase Neg (Negative) 11/06/17 15:49 Urine WBC (Auto) 2.0 /HPF (0.0-6.0) 11/06/17 15:49 Urine RBC (Auto) 8.0 /HPF (0.0-6.0) 11/06/17 15:49 U Epithel Cells (Auto) 30.0 /HPF (0-13.0) H 11/06/17 15:49 Urine Bacteria (Auto) 1+ /HPF (Negative) 11/06/17 15:49 Hyaline Casts 1 /LPF 11/06/17 15:49 Urine Mucus 3+ /HPF 11/06/17 15:49
--- NOTE | 2017-11-08 20:59 | XRay Report ---
FINAL REPORT EXAM: XR ABD SERIES W CXR 1V HISTORY: abdominal pain/gaseous distention TECHNIQUE: PA view of the chest and supine and erect views of the abdomen PRIORS: None. FINDINGS: Chest: Lungs are clear. Trachea is midline. Cardiac and mediastinal silhouettes are unremarkable. Bony structures are intact. Abdomen: The bowel gas pattern is nonspecific. No free air is identified. Soft tissues have no evidence for mass shadows or calcifications. Surgical clips in right upper quadrant are consistent with prior cholecystectomy. The bony structures are intact. IMPRESSION: 1. No acute cardiopulmonary process seen. 2. Nonspecific, nonobstructive bowel gas pattern with no acute process noted.
[2017-11-08] MEDS: MYLICON PO SCH (23:02)
[2017-11-08] MEDS: MORPHINE IV PRN (23:04)
[2017-11-09] MEDS: HumuLIN R SUB-Q SCH ×3 (00:43→12:12)
[2017-11-09] MEDS: SODIUM CHLORIDE FLUSH SYRINGE 10 ML IV SCH ×2 (02:48→10:08)
[2017-11-09] MEDS: PERCOCET 5/325 PO PRN ×2 (06:13→12:26)
[2017-11-09] MEDS: REGLAN IV SCH ×3 (06:15→12:28)
[2017-11-09] MEDS: HEPARIN SUB-Q SCH ×2 (06:15→14:44)
--- NOTE | 2017-11-09 09:04 | Discharge Summary ---
Providers - Providers Date of Admission: 11/06/17 22:00 Date of discharge: 11/09/17 Attending physician: ALISSA CHRISTIANSEN 11/06/17 22:15 Consult to Physician [CONS] Routine Comment: Consulting Provider: MICKY PLEITEZ Physician Instructions: Reason For Exam: Acute abd pain Primary care physician: [facility]ER Hospitalization Reason for admission: abdominal pain, nausea vomiting 3 days Condition: Serious Pertinent studies: CT abdomen and pelvis; no acute intra-abdominal inflammation passes, mild uterine fibroid disease Abdominal series and chest x-ray; no acute cardiopulmonary disease noted, nonspecific nonobstructive bowel gas back in no acute process Hospital course: 46-year-old -[place] female patient with significant history of HIV diabetes mellitus hypertension was admitted through emergency room with severe abdominal pain of 3 days duration. The patient was admitted to the hospital symptomatically managed, CT abdomen and pelvis no acute abnormalities Evaluated by surgery, no surgical indication, symptomatic management Patient already has history of gastroparesis, initially placed on clear liquids , advance the diet as tolerated Patient blood pressure but she was closely monitored medications optimized Symptoms resolved, to be comfortable in no new complaints Vital signs are stable, Physical examination at discharge is unremarkable Patient is clinically stable for discharge, patient advance the diet as tolerated Discharge diagnosis; --Intractable nausea and vomiting; resolved --Acute gastritis; improved --Gastroparesis; supportive care --Type 2 diabetes mellitus; stable --HIV-AIDS --Hypertension --Diabetic neuropathy Disposition: - TO HOME OR SELFCARE Time spent for discharge: 32 min Core Measure Documentation - Palliative Care Palliative Care/ Comfort Measures: Not Applicable - Core Measures Any of the following diagnoses?: none Exam - Constitutional Vitals: Temp Pulse Resp BP Pulse Ox 98.1 F 89 18 97/64 97 11/09/17 04:01 11/09/17 04:01 11/09/17 04:01 11/09/17 04:01 11/09/17 04:01 General appearance: Present: no acute distress, well-nourished - EENT Eyes: Present: PERRL, EOM intact - Neck Neck: Present: supple, normal ROM - Respiratory Respiratory effort: normal Respiratory: negative: rales, rhonchi, wheezing - Cardiovascular Rhythm: regular Heart Sounds: Present: S1 & S2 - Extremities Extremities: no ischemia, No edema Peripheral Pulses: within normal limits - Abdominal General gastrointestinal: Present: soft, non-tender, non-distended, normal bowel sounds - Integumentary Integumentary: Present: clear, warm - Musculoskeletal Musculoskeletal: strength equal bilaterally - Psychiatric Psychiatric: appropriate mood/affect, cooperative - Neurologic Neurologic: CNII-XII intact, moves all extremities Plan Activity: no restrictions Diet: diabetic, advance as tolerated Additional Instructions: Follow Pvt. ID per schedule Follow up with: PRIMARY CARE, [Primary Care Provider] - 3-5 Days Prescriptions: oxyCODONE /ACETAMINOPHEN [Percocet 5/325 mg] 1 tab PO QHS PRN #5 tablet PRN Reason: Pain, Moderate (4-6)
[2017-11-09] MEDS: MYLICON PO SCH ×2 (10:03→14:44)
[2017-11-09] MEDS: COLACE PO SCH (10:04)
[2017-11-09] MEDS: ATRIPLA (NF) PO SCH (10:04)
[2017-11-09 12:18] VITALS: BP 132/73
== END 2017-11-09 14:15 | disposition home or self-care (01) | DRG 73 ==
LOC: ED 04:27 → 3B-SURG 22:00
PROVIDERS: ADMIT Internal Medicine; ATTEND Internal Medicine
DX: E11.43 Type 2 diabetes mellitus with diabetic autonomic (poly)neuropathy (principal); B20 Human immunodeficiency virus [HIV] disease; I10 Essential (primary) hypertension; K29.00 Acute gastritis without bleeding; K31.84 Gastroparesis; E11.40 Type 2 diabetes mellitus with diabetic neuropathy, unspecified; F32.9 Major depressive disorder, single episode, unspecified; F43.10 Post-traumatic stress disorder, unspecified; F17.200 Nicotine dependence, unspecified, uncomplicated; F12.90 Cannabis use, unspecified, uncomplicated; E87.6 Hypokalemia; Z86.73 Personal history of transient ischemic attack (TIA), and cerebral infarction without residual deficits; Z90.49 Acquired absence of other specified parts of digestive tract; Z87.11 Personal history of peptic ulcer disease; Z82.49 Family history of ischemic heart disease and other diseases of the circulatory system
CPT/HCPCS: 36415; 74022; 74176; 80048; 80053; 81001; 82150; 82962; 83036; 83690; 83735; 84703; 85025; 96374; 96375; J1170; J1644; J1815; J2270; J2405; J2765; J3480; J7040; J7042